=== PATIENT | female | born 1960 | race African-American/Black ===

== ENCOUNTER 2021-04-20 15:45 | Inpatient (IN) | payer OTHER ==
[2021-04-20 16:25] VITALS: BMI 23.4
[2021-04-20] MEDS ORDERED: cloNIDine HCL 0.1 MG TABLET PO ONE (16:33)
[2021-04-20] MEDS ORDERED: MAG HYDROX/AL HYDROX/SIMETH 30 ML UNIT-DOSE CUP PO PRN (16:42)
[2021-04-20] MEDS ORDERED: MENTHOL/PHENOL 1 EACH UD MM PRN (16:42)
[2021-04-20] MEDS ORDERED: ACETAMINOPHEN 325 MG TABLET (FP) PO PRN (16:42)
[2021-04-20] MEDS ORDERED: MAGNESIUM CITRATE 300 ML BOTTLE PO PRN (16:42)
[2021-04-20] MEDS ORDERED: ONDANSETRON *ODT* 4 MG TABLET SL PRN (16:42)
[2021-04-20] MEDS: diazePAM 5 MG TABLET PO PRN (21:01)
[2021-04-20] MEDS: MELATONIN 5 MG TABLETS PO SCH ×2 (23:24→23:28)
[2021-04-20] MEDS: diazePAM 5 MG TABLET PO SCH (23:25)
[2021-04-20] MEDS: THIAMINE HCL 100 MG TABLET (FP) PO SCH ×2 (23:25→23:27)
[2021-04-21] MEDS: diazePAM 5 MG TABLET PO SCH ×4 (05:44→22:33)
[2021-04-21] MEDS: PRENATAL VITAMINS W/ FOLIC ACID TABLET (FP) PO SCH (10:14)
[2021-04-21] MEDS: ALBUTEROL SO4 HFA INHALER IH PRN (10:17)
[2021-04-21] MEDS: MAGNESIUM HYDROX 2400MG/30ML ORAL SUSPENSION 30 ML CUP PO PRN (10:28)
[2021-04-21] MEDS ORDERED: cloNIDine HCL 0.1 MG TABLET PO ONE (10:42)
[2021-04-21 15:29] LABS: BLOOD UREA NITROGEN 62.4 mg/dL (7-18); CALCIUM 8.7 mg/dL (8.5-10.1)
[2021-04-21 15:33] LABS: CREATININE 2.7 mg/dL (0.55-1.3)
[2021-04-21 15:34] LABS: BILIRUBIN,TOTAL 0.4 mg/dL (0.2-1); HEMOGLOBIN 11.9 GM/dL (10.7-15.3); MCH 33.4 pg (25.7-33.7); MEAN PLT VOLUME 8.6 fl (7.5-11.1); PLATELET COUNT 256 10^3/uL (134-434); RBC 3.57 M/mm3 (3.60-5.2); TOT PROT 7.8 g/dl (6.4-8.2); WHITE BLOOD COUNT 2.9 K/mm3 (4.0-10.0)
[2021-04-21] MEDS: NICOTINE 10 MG CARTRIDGE (INHALER) IH PRN (18:46)
[2021-04-21] MEDS: MELATONIN 5 MG TABLETS PO SCH (22:32)
[2021-04-21] MEDS: THIAMINE HCL 100 MG TABLET (FP) PO SCH (22:32)
[2021-04-22] MEDS: ACETAMINOPHEN 325 MG TABLET (FP) PO PRN ×2 (05:13→14:57)
[2021-04-22] MEDS: diazePAM 5 MG TABLET PO SCH ×3 (06:17→22:48)
[2021-04-22] MEDS: PRENATAL VITAMINS W/ FOLIC ACID TABLET (FP) PO SCH (10:41)
[2021-04-22] MEDS: NICOTINE 10 MG CARTRIDGE (INHALER) IH PRN (18:52)
[2021-04-22] MEDS: hydrOXYzine PAMOATE 25 MG CAPSULE (FP) PO PRN (22:24)
[2021-04-22] MEDS: METHOCARBAMOL 500 MG TABLET PO PRN (22:24)
[2021-04-22] MEDS: MELATONIN 5 MG TABLETS PO SCH (22:24)
[2021-04-22] MEDS: diazePAM 5 MG TABLET PO PRN (22:25)
[2021-04-22] MEDS: THIAMINE HCL 100 MG TABLET (FP) PO SCH (22:25)
[2021-04-23] MEDS: diazePAM 5 MG TABLET PO SCH ×2 (06:20→17:58)
[2021-04-23] MEDS: ACETAMINOPHEN 325 MG TABLET (FP) PO PRN ×2 (06:21→17:59)
[2021-04-23] MEDS: diazePAM 5 MG TABLET PO PRN (10:23)
[2021-04-23] MEDS: PRENATAL VITAMINS W/ FOLIC ACID TABLET (FP) PO SCH (10:25)
[2021-04-23] MEDS ORDERED: amLODIPine BESYLATE 10 MG TABLET (FP) PO ONE (11:15)
[2021-04-23] MEDS: POTASSIUM CHLORIDE TABS 20 MEQ TABLET.ER (FP) PO SCH (11:16)
[2021-04-23] MEDS: HYDROCHLOROTHIAZIDE 12.5 MG CAPSULE (FP) PO SCH (11:16)
[2021-04-23] MEDS: METHOCARBAMOL 500 MG TABLET PO PRN (17:59)
[2021-04-23 18:28] LABS: BASO % 1.1 % (0-2.0); EOS % 6.8 % (0-4.5); HEMATOCRIT 36.6 % (32.4-45.2); LYMPH % 28.9 % (8-40); MCH 32.7 pg (25.7-33.7); MCHC 32.7 g/dl (32.0-36.0); MEAN PLT VOLUME 9.7 fl (7.5-11.1); MONO % 17.5 % (3.8-10.2); NEUT % 45.7 % (42.8-82.8); PLATELET COUNT 266 10^3/uL (134-434); RBC 3.66 M/mm3 (3.60-5.2); RDW 16.1 % (11.6-15.6); WHITE BLOOD COUNT 4.2 K/mm3 (4.0-10.0)
[2021-04-23] MEDS ORDERED: METOPROLOL TARTRATE 25 MG TABLET (FP) PO ONE (21:44)
[2021-04-23] MEDS: hydrOXYzine PAMOATE 25 MG CAPSULE (FP) PO PRN (22:15)
[2021-04-23] MEDS: THIAMINE HCL 100 MG TABLET (FP) PO SCH (22:15)
[2021-04-23] MEDS: MELATONIN 5 MG TABLETS PO SCH (22:15)
[2021-04-23] MEDS: MAGNESIUM HYDROX 2400MG/30ML ORAL SUSPENSION 30 ML CUP PO PRN (22:16)
[2021-04-24] MEDS: ALBUTEROL SO4 HFA INHALER IH PRN ×2 (02:38→06:44)
[2021-04-24] MEDS ORDERED: diazePAM 5 MG TABLET PO ONE (06:00)
[2021-04-24 09:23] VITALS: PULSE 101
[2021-04-24] MEDS: POTASSIUM CHLORIDE TABS 20 MEQ TABLET.ER (FP) PO SCH (10:11)
[2021-04-24] MEDS: HYDROCHLOROTHIAZIDE 12.5 MG CAPSULE (FP) PO SCH (10:11)
[2021-04-24] MEDS: PRENATAL VITAMINS W/ FOLIC ACID TABLET (FP) PO SCH (10:11)
[2021-04-24] MEDS: NICOTINE 10 MG CARTRIDGE (INHALER) IH PRN (11:21)
[2021-04-24 13:19] VITALS: BP 166/97; TEMP 96.9
== END 2021-04-24 13:55 | disposition home or self-care (01) | DRG 775 ==
LOC: YASAS 15:45 → Y6N 17:13 → UNDOADMIN 17:13 → Y6N 17:14 → Y3N 04-21 13:21
PROVIDERS: ADMIT Allergy & Immunology; ATTEND Allergy & Immunology
PROC: HZ2ZZZZ Detoxification Services for Substance Abuse Treatment (ICD-10-PCS; principal; 2021-04-20)
DX: F10.230 Alcohol dependence with withdrawal, uncomplicated (principal); F12.20 Cannabis dependence, uncomplicated; F17.210 Nicotine dependence, cigarettes, uncomplicated; I10 Essential (primary) hypertension; J45.909 Unspecified asthma, uncomplicated; Z88.6 Allergy status to analgesic agent
CPT/HCPCS: 36415; 80053; 84132; 85025; 85027; 86780; C9803; J0735; Q0162; U0003; U0005

== ENCOUNTER 2021-04-24 14:31 | Inpatient (IN) | payer OTHER ==
[2021-04-24] MEDS ORDERED: LOPERAMIDE HCL 2 MG CAPSULE PO PRN (15:49)
[2021-04-24] MEDS ORDERED: P-EPHED 60MG/TRIPROLIDI 2.5MG TABLET PO PRN (15:49)
[2021-04-24] MEDS ORDERED: MENTHOL/PHENOL 1 EACH UD MM PRN (15:49)
[2021-04-24] MEDS ORDERED: MAGNESIUM HYDROX 2400MG/30ML ORAL SUSPENSION 30 ML CUP PO PRN (15:49)
[2021-04-24] MEDS ORDERED: MAGNESIUM CITRATE 300 ML BOTTLE PO PRN (15:49)
[2021-04-24] MEDS ORDERED: guaiFENesin 200 MG/10 ML 10 ML UNIT-DOSE CUPS PO PRN (15:49)
[2021-04-24] MEDS ORDERED: MAG HYDROX/AL HYDROX/SIMETH 30 ML UNIT-DOSE CUP PO PRN (15:49)
[2021-04-24] MEDS: hydrOXYzine PAMOATE 25 MG CAPSULE (FP) PO SCH ×2 (18:33→22:16)
[2021-04-24] MEDS: THIAMINE HCL 100 MG TABLET (FP) PO SCH (22:16)
[2021-04-24] MEDS: MELATONIN 5 MG TABLETS PO SCH (22:16)
[2021-04-25] MEDS: hydrOXYzine PAMOATE 25 MG CAPSULE (FP) PO SCH ×5 (08:05→21:27)
[2021-04-25] MEDS: NICOTINE 7 MG/24 HOURS TOPICAL PATCH TD SCH (09:20)
[2021-04-25] MEDS: PRENATAL VITAMINS W/ FOLIC ACID TABLET (FP) PO SCH (09:21)
[2021-04-25] MEDS: HYDROCHLOROTHIAZIDE 12.5 MG CAPSULE (FP) PO SCH (09:21)
[2021-04-25] MEDS: MELATONIN 5 MG TABLETS PO SCH (21:27)
[2021-04-25] MEDS: THIAMINE HCL 100 MG TABLET (FP) PO SCH (21:27)
[2021-04-25] MEDS: ACETAMINOPHEN 325 MG TABLET (FP) PO PRN (21:29)
[2021-04-26] MEDS: hydrOXYzine PAMOATE 25 MG CAPSULE (FP) PO SCH ×4 (07:13→13:06)
[2021-04-26] MEDS: PRENATAL VITAMINS W/ FOLIC ACID TABLET (FP) PO SCH (10:09)
[2021-04-26] MEDS: NICOTINE 7 MG/24 HOURS TOPICAL PATCH TD SCH (10:09)
[2021-04-26] MEDS: HYDROCHLOROTHIAZIDE 12.5 MG CAPSULE (FP) PO SCH (10:09)
[2021-04-26] MEDS: NICOTINE 10 MG CARTRIDGE (INHALER) IH PRN (10:10)
[2021-04-26] MEDS: MELATONIN 5 MG TABLETS PO SCH (22:11)
[2021-04-26] MEDS: THIAMINE HCL 100 MG TABLET (FP) PO SCH (22:12)
[2021-04-26] MEDS: ACETAMINOPHEN 325 MG TABLET (FP) PO PRN (22:13)
[2021-04-27] MEDS: hydrOXYzine PAMOATE 25 MG CAPSULE (FP) PO SCH ×7 (00:12→22:39)
[2021-04-27] MEDS: ACETAMINOPHEN 325 MG TABLET (FP) PO PRN ×2 (06:22→22:39)
[2021-04-27] MEDS: NICOTINE 7 MG/24 HOURS TOPICAL PATCH TD SCH (10:32)
[2021-04-27] MEDS: PRENATAL VITAMINS W/ FOLIC ACID TABLET (FP) PO SCH (10:32)
[2021-04-27] MEDS: HYDROCHLOROTHIAZIDE 12.5 MG CAPSULE (FP) PO SCH (10:32)
[2021-04-27] MEDS: MELATONIN 5 MG TABLETS PO SCH (22:39)
[2021-04-27] MEDS: THIAMINE HCL 100 MG TABLET (FP) PO SCH (22:39)
[2021-04-28] MEDS: hydrOXYzine PAMOATE 25 MG CAPSULE (FP) PO SCH ×5 (06:37→22:00)
[2021-04-28] MEDS: ACETAMINOPHEN 325 MG TABLET (FP) PO PRN ×3 (06:38→21:59)
[2021-04-28] MEDS: HYDROCHLOROTHIAZIDE 12.5 MG CAPSULE (FP) PO SCH (10:40)
[2021-04-28] MEDS: NICOTINE 7 MG/24 HOURS TOPICAL PATCH TD SCH (10:40)
[2021-04-28] MEDS: PRENATAL VITAMINS W/ FOLIC ACID TABLET (FP) PO SCH (10:40)
[2021-04-28] MEDS ORDERED: PT OWN MED DRAWER 7, Y5N ONE (14:45)
[2021-04-28] MEDS: ALBUTEROL SO4 HFA INHALER IH PRN (14:46)
[2021-04-28] MEDS: THIAMINE HCL 100 MG TABLET (FP) PO SCH (22:00)
[2021-04-28] MEDS: MELATONIN 5 MG TABLETS PO SCH (22:00)
[2021-04-29] MEDS: hydrOXYzine PAMOATE 25 MG CAPSULE (FP) PO SCH ×5 (06:55→21:38)
[2021-04-29] MEDS: PRENATAL VITAMINS W/ FOLIC ACID TABLET (FP) PO SCH (10:19)
[2021-04-29] MEDS: HYDROCHLOROTHIAZIDE 12.5 MG CAPSULE (FP) PO SCH (10:20)
[2021-04-29] MEDS: NICOTINE 7 MG/24 HOURS TOPICAL PATCH TD SCH (10:20)
[2021-04-29] MEDS: NICOTINE 10 MG CARTRIDGE (INHALER) IH PRN (10:21)
[2021-04-29] MEDS: ACETAMINOPHEN 325 MG TABLET (FP) PO PRN ×2 (13:18→21:37)
[2021-04-29] MEDS ORDERED: cloNIDine HCL 0.1 MG TABLET PO ONE (14:45)
[2021-04-29] MEDS: MELATONIN 5 MG TABLETS PO SCH (21:36)
[2021-04-29] MEDS: THIAMINE HCL 100 MG TABLET (FP) PO SCH (21:38)
[2021-04-30] MEDS: hydrOXYzine PAMOATE 25 MG CAPSULE (FP) PO SCH ×2 (06:22→10:21)
[2021-04-30] MEDS: HYDROCHLOROTHIAZIDE 12.5 MG CAPSULE (FP) PO SCH ×2 (08:26→10:21)
[2021-04-30] MEDS: ACETAMINOPHEN 325 MG TABLET (FP) PO PRN ×2 (08:27→21:54)
[2021-04-30] MEDS: NICOTINE 7 MG/24 HOURS TOPICAL PATCH TD SCH (10:21)
[2021-04-30] MEDS: PRENATAL VITAMINS W/ FOLIC ACID TABLET (FP) PO SCH (10:21)
[2021-04-30] MEDS ORDERED: hydrOXYzine PAMOATE 25 MG CAPSULE (FP) PO PRN (13:20)
[2021-04-30] MEDS: MELATONIN 5 MG TABLETS PO SCH (21:53)
[2021-04-30] MEDS: THIAMINE HCL 100 MG TABLET (FP) PO SCH (21:53)
[2021-05-01] MEDS: PRENATAL VITAMINS W/ FOLIC ACID TABLET (FP) PO SCH (10:27)
[2021-05-01] MEDS: ALBUTEROL SO4 HFA INHALER IH PRN (10:28)
[2021-05-01] MEDS: NICOTINE 7 MG/24 HOURS TOPICAL PATCH TD SCH (10:29)
[2021-05-01] MEDS: HYDROCHLOROTHIAZIDE 12.5 MG CAPSULE (FP) PO SCH (10:30)
[2021-05-01 13:07] LABS: HEMATOCRIT 33.3 % (32.4-45.2); HEMOGLOBIN 11.1 GM/dL (10.7-15.3); MCH 32.6 pg (25.7-33.7); MCHC 33.4 g/dl (32.0-36.0); MEAN CELL VOLUME 97.7 fl (80-96); MEAN PLT VOLUME 8.8 fl (7.5-11.1); PLATELET COUNT 339 10^3/uL (134-434); RBC 3.41 M/mm3 (3.60-5.2); RDW 16.6 % (11.6-15.6); WHITE BLOOD COUNT 5.6 K/mm3 (4.0-10.0)
[2021-05-01 13:19] LABS: CALCIUM 9.2 mg/dL (8.5-10.1)
[2021-05-01 13:20] LABS: ALBUMIN 3.2 g/dl (3.4-5.0); BLOOD UREA NITROGEN 59.6 mg/dL (7-18)
[2021-05-01 13:23] LABS: CREATININE 2.6 mg/dL (0.55-1.3)
[2021-05-01 13:24] LABS: BILIRUBIN,TOTAL 0.4 mg/dL (0.2-1)
[2021-05-01 13:25] LABS: TOT PROT 8.1 g/dl (6.4-8.2)
[2021-05-01] MEDS ORDERED: cloNIDine HCL 0.1 MG TABLET PO ONE (16:05)
[2021-05-01] MEDS: ACETAMINOPHEN 325 MG TABLET (FP) PO PRN (21:50)
[2021-05-01] MEDS: MELATONIN 5 MG TABLETS PO SCH (21:51)
[2021-05-01] MEDS: THIAMINE HCL 100 MG TABLET (FP) PO SCH (21:51)
[2021-05-02] MEDS: cloNIDine HCL 0.1 MG TABLET PO PRN (06:14)
[2021-05-02] MEDS: ALBUTEROL SO4 HFA INHALER IH PRN ×2 (06:15→10:26)
[2021-05-02] MEDS: HYDROCHLOROTHIAZIDE 12.5 MG CAPSULE (FP) PO SCH (10:26)
[2021-05-02] MEDS: PRENATAL VITAMINS W/ FOLIC ACID TABLET (FP) PO SCH (10:27)
[2021-05-02] MEDS: ACETAMINOPHEN 325 MG TABLET (FP) PO PRN (10:28)
[2021-05-02] MEDS: NICOTINE 7 MG/24 HOURS TOPICAL PATCH TD SCH (10:31)
[2021-05-02] MEDS: THIAMINE HCL 100 MG TABLET (FP) PO SCH (23:36)
[2021-05-02] MEDS: MELATONIN 5 MG TABLETS PO SCH (23:36)
[2021-05-03] MEDS: ALBUTEROL SO4 HFA INHALER IH PRN ×2 (10:57→21:39)
[2021-05-03] MEDS: PRENATAL VITAMINS W/ FOLIC ACID TABLET (FP) PO SCH (10:57)
[2021-05-03] MEDS: HYDROCHLOROTHIAZIDE 12.5 MG CAPSULE (FP) PO SCH (10:58)
[2021-05-03] MEDS: NICOTINE 7 MG/24 HOURS TOPICAL PATCH TD SCH (10:59)
[2021-05-03] MEDS: NICOTINE 10 MG CARTRIDGE (INHALER) IH PRN (14:07)
[2021-05-03] MEDS: MELATONIN 5 MG TABLETS PO SCH (21:38)
[2021-05-03] MEDS: THIAMINE HCL 100 MG TABLET (FP) PO SCH (21:39)
[2021-05-03] MEDS: ACETAMINOPHEN 325 MG TABLET (FP) PO PRN (21:40)
[2021-05-04] MEDS: ALBUTEROL SO4 HFA INHALER IH PRN (06:01)
[2021-05-04] MEDS: ACETAMINOPHEN 325 MG TABLET (FP) PO PRN ×2 (06:02→21:46)
[2021-05-04] MEDS: PRENATAL VITAMINS W/ FOLIC ACID TABLET (FP) PO SCH (09:48)
[2021-05-04] MEDS: HYDROCHLOROTHIAZIDE 12.5 MG CAPSULE (FP) PO SCH (09:49)
[2021-05-04] MEDS: NICOTINE 7 MG/24 HOURS TOPICAL PATCH TD SCH (09:49)
[2021-05-04] MEDS: THIAMINE HCL 100 MG TABLET (FP) PO SCH (21:47)
[2021-05-04] MEDS: MELATONIN 5 MG TABLETS PO SCH (21:48)
[2021-05-05] MEDS: cloNIDine HCL 0.1 MG TABLET PO PRN (07:42)
[2021-05-05] MEDS: ACETAMINOPHEN 325 MG TABLET (FP) PO PRN ×2 (07:43→21:40)
[2021-05-05] MEDS: ALBUTEROL SO4 HFA INHALER IH PRN ×2 (10:25→21:39)
[2021-05-05] MEDS: PRENATAL VITAMINS W/ FOLIC ACID TABLET (FP) PO SCH (10:26)
[2021-05-05] MEDS: HYDROCHLOROTHIAZIDE 12.5 MG CAPSULE (FP) PO SCH (10:26)
[2021-05-05] MEDS: NICOTINE 7 MG/24 HOURS TOPICAL PATCH TD SCH (10:27)
[2021-05-05] MEDS: NICOTINE 10 MG CARTRIDGE (INHALER) IH PRN (10:28)
[2021-05-05] MEDS: THIAMINE HCL 100 MG TABLET (FP) PO SCH (21:39)
[2021-05-05] MEDS: MELATONIN 5 MG TABLETS PO SCH (21:39)
[2021-05-06] MEDS: ACETAMINOPHEN 325 MG TABLET (FP) PO PRN ×2 (06:36→21:02)
[2021-05-06] MEDS: ALBUTEROL SO4 HFA INHALER IH PRN ×3 (06:36→21:02)
[2021-05-06] MEDS: cloNIDine HCL 0.1 MG TABLET PO PRN ×2 (06:38→21:02)
[2021-05-06] MEDS: HYDROCHLOROTHIAZIDE 12.5 MG CAPSULE (FP) PO SCH (10:11)
[2021-05-06] MEDS: PRENATAL VITAMINS W/ FOLIC ACID TABLET (FP) PO SCH (10:12)
[2021-05-06] MEDS: NICOTINE 7 MG/24 HOURS TOPICAL PATCH TD SCH (10:12)
[2021-05-06] MEDS: THIAMINE HCL 100 MG TABLET (FP) PO SCH (21:02)
[2021-05-06] MEDS: MELATONIN 5 MG TABLETS PO SCH (21:04)
[2021-05-07] MEDS: cloNIDine HCL 0.1 MG TABLET PO PRN (06:20)
[2021-05-07] MEDS: ACETAMINOPHEN 325 MG TABLET (FP) PO PRN ×2 (06:22→21:48)
[2021-05-07] MEDS ORDERED: PT OWN MED DRAWER 7, Y5N ONE (06:22)
[2021-05-07] MEDS: ALBUTEROL SO4 HFA INHALER IH PRN ×2 (06:23→21:49)
[2021-05-07] MEDS: PRENATAL VITAMINS W/ FOLIC ACID TABLET (FP) PO SCH (10:54)
[2021-05-07] MEDS: NICOTINE 7 MG/24 HOURS TOPICAL PATCH TD SCH (10:54)
[2021-05-07] MEDS: HYDROCHLOROTHIAZIDE 12.5 MG CAPSULE (FP) PO SCH (10:54)
[2021-05-07] MEDS: THIAMINE HCL 100 MG TABLET (FP) PO SCH (21:49)
[2021-05-07] MEDS: MELATONIN 5 MG TABLETS PO SCH (21:50)
[2021-05-08] MEDS: ACETAMINOPHEN 325 MG TABLET (FP) PO PRN ×2 (06:26→17:57)
[2021-05-08] MEDS: ALBUTEROL SO4 HFA INHALER IH PRN (06:27)
[2021-05-08] MEDS: NICOTINE 10 MG CARTRIDGE (INHALER) IH PRN (07:44)
[2021-05-08] MEDS: PRENATAL VITAMINS W/ FOLIC ACID TABLET (FP) PO SCH (10:29)
[2021-05-08] MEDS: METHYL SALICYLATE/MENTHOL OINT 30 GM TUBE TP SCH ×2 (10:30→21:18)
[2021-05-08] MEDS: NICOTINE 7 MG/24 HOURS TOPICAL PATCH TD SCH (10:30)
[2021-05-08] MEDS: HYDROCHLOROTHIAZIDE 12.5 MG CAPSULE (FP) PO SCH (10:30)
[2021-05-08] MEDS: cloNIDine HCL 0.1 MG TABLET PO PRN (14:21)
[2021-05-08] MEDS: THIAMINE HCL 100 MG TABLET (FP) PO SCH (21:17)
[2021-05-08] MEDS: MELATONIN 5 MG TABLETS PO SCH (21:17)
[2021-05-09] MEDS: cloNIDine HCL 0.1 MG TABLET PO PRN (06:24)
[2021-05-09] MEDS: PRENATAL VITAMINS W/ FOLIC ACID TABLET (FP) PO SCH (10:17)
[2021-05-09] MEDS: HYDROCHLOROTHIAZIDE 12.5 MG CAPSULE (FP) PO SCH (10:18)
[2021-05-09] MEDS: COLCHICINE 0.6 MG CAPSULE PO SCH (10:18)
[2021-05-09] MEDS: METHYL SALICYLATE/MENTHOL OINT 30 GM TUBE TP SCH ×2 (10:18→21:30)
[2021-05-09] MEDS: amLODIPine BESYLATE 10 MG TABLET (FP) PO SCH (10:18)
[2021-05-09] MEDS: NICOTINE 7 MG/24 HOURS TOPICAL PATCH TD SCH (10:19)
[2021-05-09] MEDS: MELATONIN 5 MG TABLETS PO SCH (21:28)
[2021-05-09] MEDS: THIAMINE HCL 100 MG TABLET (FP) PO SCH (21:28)
[2021-05-09] MEDS: ACETAMINOPHEN 325 MG TABLET (FP) PO PRN (21:29)
[2021-05-10] MEDS: ACETAMINOPHEN 325 MG TABLET (FP) PO PRN ×2 (06:36→21:21)
[2021-05-10] MEDS: HYDROCHLOROTHIAZIDE 12.5 MG CAPSULE (FP) PO SCH (10:42)
[2021-05-10] MEDS: PRENATAL VITAMINS W/ FOLIC ACID TABLET (FP) PO SCH (10:42)
[2021-05-10] MEDS: amLODIPine BESYLATE 10 MG TABLET (FP) PO SCH (10:42)
[2021-05-10] MEDS: NICOTINE 7 MG/24 HOURS TOPICAL PATCH TD SCH (10:43)
[2021-05-10] MEDS: METHYL SALICYLATE/MENTHOL OINT 30 GM TUBE TP SCH ×2 (10:43→21:20)
[2021-05-10] MEDS: THIAMINE HCL 100 MG TABLET (FP) PO SCH (21:20)
[2021-05-10] MEDS: MELATONIN 5 MG TABLETS PO SCH (21:20)
[2021-05-10] MEDS: ALBUTEROL SO4 HFA INHALER IH PRN (21:22)
[2021-05-10] MEDS: cloNIDine HCL 0.1 MG TABLET PO PRN (21:23)
[2021-05-11] MEDS: cloNIDine HCL 0.1 MG TABLET PO PRN (06:12)
[2021-05-11] MEDS: ACETAMINOPHEN 325 MG TABLET (FP) PO PRN ×2 (06:13→21:36)
[2021-05-11] MEDS: PRENATAL VITAMINS W/ FOLIC ACID TABLET (FP) PO SCH (10:38)
[2021-05-11] MEDS: amLODIPine BESYLATE 10 MG TABLET (FP) PO SCH (10:40)
[2021-05-11] MEDS: METHYL SALICYLATE/MENTHOL OINT 30 GM TUBE TP SCH ×2 (10:40→21:38)
[2021-05-11] MEDS: HYDROCHLOROTHIAZIDE 12.5 MG CAPSULE (FP) PO SCH (10:40)
[2021-05-11] MEDS: NICOTINE 7 MG/24 HOURS TOPICAL PATCH TD SCH (10:40)
[2021-05-11] MEDS: ALBUTEROL SO4 HFA INHALER IH PRN (10:44)
[2021-05-11] MEDS: COLCHICINE 0.6 MG CAPSULE PO SCH (11:51)
[2021-05-11] MEDS: BACITRACIN 0.9 GM PACKET TP SCH ×2 (11:52→21:36)
[2021-05-11] MEDS: CEPHALEXIN MONOHYDRATE 250 MG CAPSULE (FP) PO SCH ×3 (14:26→21:36)
[2021-05-11] MEDS: MELATONIN 5 MG TABLETS PO SCH (21:36)
[2021-05-11] MEDS: THIAMINE HCL 100 MG TABLET (FP) PO SCH (21:36)
[2021-05-12] MEDS: ACETAMINOPHEN 325 MG TABLET (FP) PO PRN ×2 (06:57→21:51)
[2021-05-12] MEDS: HYDROCHLOROTHIAZIDE 12.5 MG CAPSULE (FP) PO SCH (10:29)
[2021-05-12] MEDS: amLODIPine BESYLATE 10 MG TABLET (FP) PO SCH (10:29)
[2021-05-12] MEDS: PRENATAL VITAMINS W/ FOLIC ACID TABLET (FP) PO SCH (10:29)
[2021-05-12] MEDS: BACITRACIN 0.9 GM PACKET TP SCH ×2 (10:29→21:51)
[2021-05-12] MEDS: METHYL SALICYLATE/MENTHOL OINT 30 GM TUBE TP SCH ×2 (10:30→21:51)
[2021-05-12] MEDS: CEPHALEXIN MONOHYDRATE 250 MG CAPSULE (FP) PO SCH ×4 (10:30→21:50)
[2021-05-12] MEDS: NICOTINE 7 MG/24 HOURS TOPICAL PATCH TD SCH (10:31)
[2021-05-12] MEDS: ALBUTEROL SO4 HFA INHALER IH PRN ×2 (10:31→21:53)
[2021-05-12] MEDS: NICOTINE 10 MG CARTRIDGE (INHALER) IH PRN (10:32)
[2021-05-12] MEDS ORDERED: PT OWN MED DRAWER 7, Y5N ONE ×2 (13:27→16:49)
[2021-05-12] MEDS: THIAMINE HCL 100 MG TABLET (FP) PO SCH (21:50)
[2021-05-12] MEDS: MELATONIN 5 MG TABLETS PO SCH (21:50)
[2021-05-13] MEDS: ACETAMINOPHEN 325 MG TABLET (FP) PO PRN ×2 (06:28→22:19)
[2021-05-13] MEDS: HYDROCHLOROTHIAZIDE 12.5 MG CAPSULE (FP) PO SCH (10:24)
[2021-05-13] MEDS: amLODIPine BESYLATE 10 MG TABLET (FP) PO SCH (10:24)
[2021-05-13] MEDS: PRENATAL VITAMINS W/ FOLIC ACID TABLET (FP) PO SCH (10:24)
[2021-05-13] MEDS: BACITRACIN 0.9 GM PACKET TP SCH ×2 (10:24→22:17)
[2021-05-13] MEDS: METHYL SALICYLATE/MENTHOL OINT 30 GM TUBE TP SCH ×2 (10:25→22:17)
[2021-05-13] MEDS: CEPHALEXIN MONOHYDRATE 250 MG CAPSULE (FP) PO SCH ×4 (10:25→22:17)
[2021-05-13] MEDS: NICOTINE 7 MG/24 HOURS TOPICAL PATCH TD SCH (10:26)
[2021-05-13] MEDS: NICOTINE 10 MG CARTRIDGE (INHALER) IH PRN (10:26)
[2021-05-13] MEDS: MELATONIN 5 MG TABLETS PO SCH (22:16)
[2021-05-13] MEDS: THIAMINE HCL 100 MG TABLET (FP) PO SCH (22:16)
[2021-05-14] MEDS: ACETAMINOPHEN 325 MG TABLET (FP) PO PRN ×2 (06:30→21:33)
[2021-05-14] MEDS: PRENATAL VITAMINS W/ FOLIC ACID TABLET (FP) PO SCH (10:51)
[2021-05-14] MEDS: CEPHALEXIN MONOHYDRATE 250 MG CAPSULE (FP) PO SCH ×4 (10:52→21:33)
[2021-05-14] MEDS: amLODIPine BESYLATE 10 MG TABLET (FP) PO SCH (10:52)
[2021-05-14] MEDS: COLCHICINE 0.6 MG CAPSULE PO SCH (10:53)
[2021-05-14] MEDS: HYDROCHLOROTHIAZIDE 12.5 MG CAPSULE (FP) PO SCH (10:54)
[2021-05-14] MEDS: METHYL SALICYLATE/MENTHOL OINT 30 GM TUBE TP SCH ×2 (10:54→21:35)
[2021-05-14] MEDS: NICOTINE 7 MG/24 HOURS TOPICAL PATCH TD SCH (10:54)
[2021-05-14] MEDS: BACITRACIN 0.9 GM PACKET TP SCH ×2 (10:54→21:33)
[2021-05-14] MEDS ORDERED: PT OWN MED DRAWER 7, Y5N ONE ×2 (17:30→21:33)
[2021-05-14] MEDS: MELATONIN 5 MG TABLETS PO SCH (21:34)
[2021-05-14] MEDS: THIAMINE HCL 100 MG TABLET (FP) PO SCH (21:35)
[2021-05-15] MEDS: cloNIDine HCL 0.1 MG TABLET PO PRN (06:24)
[2021-05-15] MEDS: ACETAMINOPHEN 325 MG TABLET (FP) PO PRN ×2 (06:25→21:42)
[2021-05-15] MEDS: HYDROCHLOROTHIAZIDE 12.5 MG CAPSULE (FP) PO SCH (10:36)
[2021-05-15] MEDS: PRENATAL VITAMINS W/ FOLIC ACID TABLET (FP) PO SCH (10:36)
[2021-05-15] MEDS: BACITRACIN 0.9 GM PACKET TP SCH ×2 (10:36→21:41)
[2021-05-15] MEDS: amLODIPine BESYLATE 10 MG TABLET (FP) PO SCH (10:36)
[2021-05-15] MEDS: NICOTINE 7 MG/24 HOURS TOPICAL PATCH TD SCH (10:37)
[2021-05-15] MEDS: METHYL SALICYLATE/MENTHOL OINT 30 GM TUBE TP SCH ×2 (10:38→21:41)
[2021-05-15] MEDS: CEPHALEXIN MONOHYDRATE 250 MG CAPSULE (FP) PO SCH ×4 (10:38→21:41)
[2021-05-15] MEDS: MELATONIN 5 MG TABLETS PO SCH (21:41)
[2021-05-15] MEDS: THIAMINE HCL 100 MG TABLET (FP) PO SCH (21:42)
[2021-05-16] MEDS: ACETAMINOPHEN 325 MG TABLET (FP) PO PRN ×2 (06:24→22:25)
[2021-05-16] MEDS: PRENATAL VITAMINS W/ FOLIC ACID TABLET (FP) PO SCH (10:21)
[2021-05-16] MEDS: COLCHICINE 0.6 MG CAPSULE PO SCH (10:22)
[2021-05-16] MEDS: CEPHALEXIN MONOHYDRATE 250 MG CAPSULE (FP) PO SCH ×4 (10:22→22:28)
[2021-05-16] MEDS: amLODIPine BESYLATE 10 MG TABLET (FP) PO SCH (10:22)
[2021-05-16] MEDS: METHYL SALICYLATE/MENTHOL OINT 30 GM TUBE TP SCH ×2 (10:22→22:30)
[2021-05-16] MEDS: HYDROCHLOROTHIAZIDE 12.5 MG CAPSULE (FP) PO SCH (10:22)
[2021-05-16] MEDS: BACITRACIN 0.9 GM PACKET TP SCH ×2 (10:22→22:29)
[2021-05-16] MEDS: NICOTINE 7 MG/24 HOURS TOPICAL PATCH TD SCH (10:23)
[2021-05-16] MEDS: THIAMINE HCL 100 MG TABLET (FP) PO SCH (22:27)
[2021-05-16] MEDS: MELATONIN 5 MG TABLETS PO SCH (22:27)
[2021-05-17] MEDS: cloNIDine HCL 0.1 MG TABLET PO PRN (06:28)
[2021-05-17] MEDS: ACETAMINOPHEN 325 MG TABLET (FP) PO PRN ×2 (06:28→21:34)
[2021-05-17] MEDS: amLODIPine BESYLATE 10 MG TABLET (FP) PO SCH (10:22)
[2021-05-17] MEDS: BACITRACIN 0.9 GM PACKET TP SCH ×2 (10:22→21:35)
[2021-05-17] MEDS: PRENATAL VITAMINS W/ FOLIC ACID TABLET (FP) PO SCH (10:22)
[2021-05-17] MEDS: HYDROCHLOROTHIAZIDE 12.5 MG CAPSULE (FP) PO SCH (10:22)
[2021-05-17] MEDS: METHYL SALICYLATE/MENTHOL OINT 30 GM TUBE TP SCH ×2 (10:23→21:36)
[2021-05-17] MEDS: NICOTINE 7 MG/24 HOURS TOPICAL PATCH TD SCH (10:23)
[2021-05-17] MEDS: CEPHALEXIN MONOHYDRATE 250 MG CAPSULE (FP) PO SCH ×4 (10:23→21:35)
[2021-05-17] MEDS ORDERED: PT OWN MED DRAWER 7, Y5N ONE (13:15)
[2021-05-17] MEDS: THIAMINE HCL 100 MG TABLET (FP) PO SCH (21:35)
[2021-05-17] MEDS: MELATONIN 5 MG TABLETS PO SCH (21:36)
[2021-05-18] MEDS: ACETAMINOPHEN 325 MG TABLET (FP) PO PRN (06:44)
[2021-05-18 07:30] VITALS: BP 145/80; PULSE 81; TEMP 95.3
[2021-05-18] MEDS ORDERED: PT OWN MED DRAWER 7, Y5N ONE (08:56)
[2021-05-18] MEDS: BACITRACIN 0.9 GM PACKET TP SCH (09:33)
[2021-05-18] MEDS: NICOTINE 7 MG/24 HOURS TOPICAL PATCH TD SCH (09:33)
[2021-05-18] MEDS: METHYL SALICYLATE/MENTHOL OINT 30 GM TUBE TP SCH (09:33)
[2021-05-18] MEDS: COLCHICINE 0.6 MG CAPSULE PO SCH (09:33)
[2021-05-18] MEDS: amLODIPine BESYLATE 10 MG TABLET (FP) PO SCH (09:33)
[2021-05-18] MEDS: CEPHALEXIN MONOHYDRATE 250 MG CAPSULE (FP) PO SCH (09:33)
[2021-05-18] MEDS: HYDROCHLOROTHIAZIDE 12.5 MG CAPSULE (FP) PO SCH (09:33)
[2021-05-18] MEDS: PRENATAL VITAMINS W/ FOLIC ACID TABLET (FP) PO SCH (09:34)
== END 2021-05-18 09:40 | disposition home or self-care (01) | DRG 772 ==
LOC: YASAS 14:31 → Y5N 14:32
PROVIDERS: ADMIT Allergy & Immunology; ATTEND Allergy & Immunology
PROC: HZ42ZZZ Group Counseling for Substance Abuse Treatment, Cognitive-Behavioral (ICD-10-PCS; principal; 2021-04-24)
DX: F10.20 Alcohol dependence, uncomplicated (principal); F17.210 Nicotine dependence, cigarettes, uncomplicated; N19 Unspecified kidney failure; I10 Essential (primary) hypertension; J45.909 Unspecified asthma, uncomplicated; L03.115 Cellulitis of right lower limb; R79.89 Other specified abnormal findings of blood chemistry; R26.2 Difficulty in walking, not elsewhere classified; Z99.89 Dependence on other enabling machines and devices; Z88.6 Allergy status to analgesic agent; Z91.14 Patient's other noncompliance with medication regimen; Z86.11 Personal history of tuberculosis
CPT/HCPCS: 36415; 71045-TC-FY; 80053; 85027; J0735

== ENCOUNTER 2021-05-02 16:50 | Emergency (ER) | payer OTHER ==
[2021-05-02 19:24] VITALS: BMI 31.2
[2021-05-02 21:25] LABS: ALBUMIN 2.9 g/dl (3.4-5.0); BLOOD UREA NITROGEN 59.4 mg/dL (7-18); CALCIUM 8.9 mg/dL (8.5-10.1)
[2021-05-02 21:27] LABS: CREATININE 2.4 mg/dL (0.55-1.3)
[2021-05-02 21:30] LABS: BILIRUBIN,TOTAL 0.2 mg/dL (0.2-1); TOT PROT 7.4 g/dl (6.4-8.2)
[2021-05-02 21:52] LABS: BASO % 0.6 % (0-2.0); EOS % 6.2 % (0-4.5); HEMOGLOBIN 10.1 GM/dL (10.7-15.3); LYMPH % 21.8 % (8-40); MCH 31.9 pg (25.7-33.7); MCHC 33.6 g/dl (32.0-36.0); MEAN CELL VOLUME 95.1 fl (80-96); MEAN PLT VOLUME 8.5 fl (7.5-11.1); MONO % 14.5 % (3.8-10.2); NEUT % 56.9 % (42.8-82.8); PLATELET COUNT 336 10^3/uL (134-434); RBC 3.16 M/mm3 (3.60-5.2); RDW 16.2 % (11.6-15.6); WHITE BLOOD COUNT 7.4 K/mm3 (4.0-10.0)
[2021-05-03] MEDS ORDERED: ACETAMINOPHEN 325 MG TABLET (FP) PO ONE ×2 (01:37→06:15)
[2021-05-03] MEDS ORDERED: ACETAMINOPHEN 325 MG TABLET (FP) ONE ×3 (02:19→06:18)
[2021-05-03 08:49] VITALS: BP 171/99; PULSE 83; TEMP 98.7
== END 2021-05-03 08:50 | disposition home or self-care (01) ==
LOC: JER 16:50
DX: N18.9 Chronic kidney disease, unspecified (principal); Z01.30 Encounter for examination of blood pressure without abnormal findings
CPT/HCPCS: 36415; 80053; 85025; 93005; 93010; 99284-25